=== PATIENT | female | born 1950 | race Caucasian/White ===

== ENCOUNTER 2022-03-10 11:44 | Emergency (ER) | payer OTHER ==
[2022-03-10] MEDS ORDERED: Ketorolac 30 MG/ML SDV IVPUSH ONE (12:26)
[2022-03-10] MEDS ORDERED: Ondansetron 4 MG/2 ML SDV ONE (12:39)
[2022-03-10] MEDS: HYDROmorphone 1 MG/ML Syringe ONE ×4 (12:44→15:12)
[2022-03-10] MEDS ORDERED: Ondansetron 4 MG/2 ML SDV IVPUSH ONE (12:45)
[2022-03-10] MEDS ORDERED: Sodium Chloride 0.9% 1,000 ML IV ONE (12:49)
[2022-03-10] MEDS: HYDROmorphone 1 MG/ML Syringe IVPUSH ONE ×2 (12:52→13:05)
[2022-03-10 13:21] LABS: PTT,PARTIAL THROMBOPLSTIN TIME 20.3 SEC (22.0-34.0)
[2022-03-10 13:22] LABS: ANION GAP 14.5 mEq/L (7-13)
[2022-03-10] MEDS ORDERED: HYDROmorphone 1 MG/ML Syringe IVPUSH ONE (13:53)
== END 2022-03-10 14:10 ==
LOC: DL.ED 11:44
DX: S82.61XA Displaced fracture of lateral malleolus of right fibula, initial encounter for closed fracture (principal); S72.451A Displaced supracondylar fracture without intracondylar extension of lower end of right femur, initial encounter for closed fracture; S82.391A Other fracture of lower end of right tibia, initial encounter for closed fracture; M25.461 Effusion, right knee; M17.11 Unilateral primary osteoarthritis, right knee; W22.09XA Striking against other stationary object, initial encounter
CPT/HCPCS: 29515; 36415; 72170; 73560; 73610; 80053; 85025; 85610; 85730; 96361; 96374; 96375; 96376; 99285; J1170; J2405; J3360; J7030; 99284